=== PATIENT | male | born 1995 | race Caucasian/White ===

== ENCOUNTER 2017-03-05 16:53 | Emergency (ER) | payer OTHER, MEDICAID ==
[2017-03-05] MEDS: ACETAMINOPHEN 500 MG TAB PO (21:12)
[2017-03-05 22:28] LABS: D-DIMER < 220.00 ng/ml (<460)
== END 2017-03-05 23:04 | disposition home or self-care (01) ==
LOC: FTE 16:53
DX: M54.6 Pain in thoracic spine (principal)
CPT/HCPCS: 36415; 71045; 72072; 85378; 93005; 99285-25

== ENCOUNTER 2017-07-14 18:47 | Emergency (ER) | payer BC, OTHER ==
[2017-07-14] MEDS: IBUPROFEN 600 MG TAB PO (19:12)
== END 2017-07-14 20:35 | disposition home or self-care (01) ==
LOC: FTE 18:47
DX: S63.637A Sprain of interphalangeal joint of left little finger, initial encounter (principal); V49.59XA Passenger injured in collision with other motor vehicles in traffic accident, initial encounter
CPT/HCPCS: 73130; 73130-LT; 99283-25